=== PATIENT | male | born 1990 | race Asian ===

== ENCOUNTER 2016-11-19 14:59 | Emergency (ER) | payer BC ==
[~2016-11-19] VITALS: Ht 167.6 cm; Wt 66.0 kg
[2016-11-19 15:40] VITALS: BP 140/90
[2016-11-19] MEDS ORDERED: ERYTHROMYCIN BASE 0.5% OPHTH OINT 3.5GM RIGHTEYE ONE (16:30)
== END 2016-11-19 16:46 | disposition home or self-care (01) ==
LOC: ER 16:28
DX: H00.012 Hordeolum externum right lower eyelid (principal); F12.10 Cannabis abuse, uncomplicated
CPT/HCPCS: 99283

== ENCOUNTER 2025-01-17 02:54 | Inpatient (IN) | payer SELFPAY ==
[~2025-01-17] VITALS: Ht 165.1 cm; Wt 64.0 kg
[2025-01-17 03:14] VITALS: O2SAT 98
[2025-01-17] MEDS: LORAZEPAM 2MG/ML UD SYRINGE IV NR (03:45)
[2025-01-17 04:30] LABS: BASOPHILS % 0.1 % (0.0-2.0); EOSINOPHILS % 0.0 % (0.0-5.0); HEMATOCRIT. 48.8 % (42.0-52.0); HEMOGLOBIN. 16.1 g/dL (14.0-18.0); LYMPHOCYTES % 7.6 % (20.0-50.0); MEAN PLATELET VOLUME 8.0 fl (7.4-10.4); MONOCYTES % 5.6 % (2.0-8.0); NEUTROPHILS % 86.7 % (40.0-76.0); PLATELET 190 x1000/uL (130-400); RED BLOOD CELL COUNT 5.11 mill/uL (4.7-6.1); RED CELL DISTRIBUTION WIDTH 13.8 % (11.6-14.6)
[2025-01-17] MEDS: SODIUM CHLORIDE 0.9% 1,000 ML IV ONE (04:41)
[2025-01-17] MEDS: ONDANSETRON HCL 4MG/2ML INJ IV ONE (04:41)
[2025-01-17 04:42] LABS: TROPONIN I HIGH SENSITIVITY 28 ng/L (3.0-53)
[2025-01-17 04:48] LABS: CREATININE 0.7 mg/dL (0.6-1.3); UREA NITROGEN BLOOD 15 mg/dL (9-23)
[2025-01-17 04:50] LABS: ASPARTATE AMINOTRANSFERASE 202 IU/L (<34); BILIRUBIN DIRECT 0.7 mg/dL (<=3.0); BILIRUBIN TOTAL 1.3 mg/dL (0.1-1.0); PROTEIN TOTAL 7.8 g/dL (6.0-8.3)
[2025-01-17] MEDS: MORPHINE SULFATE 4 MG/ML INJ (FOR IV/IM USE) IV ONE (05:15)
[2025-01-17 06:45] VITALS: BP 140/91; PULSE 125; RESP 19; TEMP 36.4; O2SAT 100
[2025-01-17 06:53] LABS: TROPONIN I HIGH SENSITIVITY 29 ng/L (3.0-53)
[2025-01-17 07:37] LABS: CLARITY URINE CLEAR (CLEAR); COLOR URINE DARK YELLOW (YELLOW); GLUCOSE URINE NEGATIVE (NEGATIVE); KETONES URINE 2+ (NEGATIVE); PH URINE 5.0 (4.5-8.0); PROTEIN URINE 2+ (NEGATIVE); SPECIFIC GRAVITY URINE 1.030 (1.005-1.030)
[2025-01-17 07:38] LABS: LEUKOCYTE ESTERASE URINE NEGATIVE (NEGATIVE); NITRITE URINE NEGATIVE (NEGATIVE); OCCULT BLOOD URINE 2+ (NEGATIVE); UROBILINOGEN URINE 1.0 E.U./dL (0.2-1.0)
[2025-01-17] MEDS ORDERED: ACETAMINOPHEN 325MG TABLET PO PRN ×2 (07:45)
[2025-01-17] MEDS ORDERED: CLONIDINE 0.1MG TABLET PO PRN (07:45)
[2025-01-17] MEDS ORDERED: LORAZEPAM 2MG/ML UD SYRINGE IV PRN (07:45)
[2025-01-17] MEDS ORDERED: CHLORDIAZEPOXIDE 25MG CAPSULE PO PRN (07:45)
[2025-01-17] MEDS ORDERED: IPRATROPIUM/ALBUTEROL 0.5-3(2.5)MG/3ML NEB HHN PRN (07:45)
[2025-01-17] MEDS ORDERED: ONDANSETRON HCL 4MG/2ML INJ IV PRN (07:45)
[2025-01-17] MEDS: LORAZEPAM 2MG/ML UD SYRINGE IV SCH (07:45)
[2025-01-17] MEDS ORDERED: DEXTROSE 50% WATER 50ML SYRINGE IV PRN (07:45)
[2025-01-17 07:57] LABS: SQUAMOUS EPITHELIAL CELL URINE RARE /lpf (RARE/1+)
[2025-01-17 07:59] LABS: BACTERIA URINE 1+; RBC URINE 0-2 /hpf (0-2)
[2025-01-17 08:00] VITALS: BP 143/99; PULSE 146; RESP 21; TEMP 36.6; TEMP 36.6404; O2SAT 100
[2025-01-17] MEDS: BLOOD SUGAR DIAGNOSTIC STRIP TEST SCH (08:00)
[2025-01-17] MEDS: DEXT 5%/LACTATED RINGERS 1,000 ML IV SCH (08:00)
[2025-01-17 08:01] LABS: WBC URINE 0-2 /hpf (0-2)
[2025-01-17 08:10] LABS: *AMPHETAMINES SCREEN URINE NEGATIVE (NEGATIVE); *BARBITURATES SCREEN URINE NEGATIVE (NEGATIVE); *BENZODIAZEPINES SCREEN URINE NEGATIVE (NEGATIVE)
[2025-01-17 08:11] LABS: *COCAINE SCREEN URINE NEGATIVE (NEGATIVE); CANNABINOID URINE SCREEN NEGATIVE (NEGATIVE); ECSTASY MDMA SCREEN URINE NEGATIVE (NEGATIVE); METHADONE URINE SCREEN NEGATIVE (NEGATIVE); OPIATES URINE SCREEN NEGATIVE (NEGATIVE); PHENCYCLIDINE URINE SCREEN NEGATIVE (NEGATIVE)
[2025-01-17] MEDS: LACTATED RINGERS 1,000 ML IV SCH (09:56)
[2025-01-17] MEDS: FOLIC ACID 1MG TABLET PO SCH (10:11)
[2025-01-17] MEDS: MULTIVITAMINS,THER W-MINERALS TABLET PO SCH (10:11)
[2025-01-17] MEDS: THIAMINE HCL 100 MG/1 ML 2ML VIAL IM SCH (10:12)
[2025-01-17] MEDS: PANTOPRAZOLE SODIUM 40 MG/VIAL IV NR (10:17)
[2025-01-17 12:00] VITALS: BP 129/95; PULSE 125; RESP 20; TEMP 36.7; O2SAT 99
[2025-01-17 12:56] LABS: INR 1.1
[2025-01-17 13:02] LABS: PHOSPHORUS 2.3 mg/dL (2.5-4.9)
[2025-01-17] MEDS: SUCRALFATE 1G TABLET PO SCH (13:29)
[2025-01-17] MEDS ORDERED: VITA1CAP (14:08)
[2025-01-17] MEDS ORDERED: THIA50TA12 PO (14:08)
[2025-01-17 14:27] LABS: HEPATITIS A AB IGM NEGATIVE (Negative)
[2025-01-17 14:28] LABS: HEPATITIS B CORE AB IGM NEGATIVE (Negative); HEPATITIS C AB NON REACTIVE (Neg) (Negative)
[2025-01-17] MEDS: MAGNESIUM 4 G PREMIX 100 ML IV NR (14:50)
[2025-01-17 16:00] VITALS: BP 151/104; PULSE 117; RESP 19; TEMP 36.8; O2SAT 99
[2025-01-17 20:00] VITALS: BP 146/89; PULSE 98; RESP 20; TEMP 37.4; O2SAT 98
[2025-01-17] MEDS: PANTOPRAZOLE SODIUM 40 MG/VIAL IV SCH (22:08)
[2025-01-17] MEDS: PIPERACILLIN/TAZO 3.375G/50ML 50 ML IV SCH (22:09)
[2025-01-18] VITALS: BP 138/66; PULSE 99; RESP 20; TEMP 37.1; O2SAT 98
[2025-01-18 04:00] VITALS: BP 145/89; PULSE 111; RESP 20; TEMP 37.1; O2SAT 98
[2025-01-18 07:16] LABS: BASOPHILS % 0.1 % (0.0-2.0); EOSINOPHILS % 0.1 % (0.0-5.0); HEMATOCRIT. 39.3 % (42.0-52.0); HEMOGLOBIN. 13.7 g/dL (14.0-18.0); LYMPHOCYTES % 12.6 % (20.0-50.0); MEAN PLATELET VOLUME 9.2 fl (7.4-10.4); MONOCYTES % 4.9 % (2.0-8.0); NEUTROPHILS % 82.3 % (40.0-76.0); PLATELET 77 x1000/uL (130-400); RED BLOOD CELL COUNT 4.19 mill/uL (4.7-6.1); RED CELL DISTRIBUTION WIDTH 14.0 % (11.6-14.6)
[2025-01-18 07:25] LABS: CREATININE 0.5 mg/dL (0.6-1.3)
[2025-01-18 07:26] LABS: LDL CHOLESTEROL 20 mg/dL (5-100); TRIGLYCERIDE 144 mg/dL (0-150); UREA NITROGEN BLOOD < 5 mg/dL (9-23)
[2025-01-18 07:27] LABS: ASPARTATE AMINOTRANSFERASE 161 IU/L (<34); BILIRUBIN DIRECT 0.8 mg/dL (<=3.0)
[2025-01-18 07:28] LABS: BILIRUBIN TOTAL 1.7 mg/dL (0.1-1.0); PROTEIN TOTAL 6.1 g/dL (6.0-8.3)
[2025-01-18 07:29] LABS: T4 FREE 1.46 ng/dL (0.89-1.76)
[2025-01-18 07:46] LABS: PHOSPHORUS 0.8 mg/dL (2.5-4.9)
[2025-01-18 08:00] VITALS: BP 141/84; PULSE 103; RESP 18; TEMP 36.8; O2SAT 100
[2025-01-18] MEDS ORDERED: SODIUM CHLORIDE 0.9% IV SCH (08:00)
[2025-01-18] MEDS ORDERED: POTASSIUM PHOSPHATE IV SCH (08:00)
[2025-01-18] MEDS: DEXT 5% IV ONE (09:18)
[2025-01-18] MEDS: WATER IV ONE (09:18)
[2025-01-18] MEDS: POTASSIUM PHOSPHATE IV ONE (09:18)
[2025-01-18] MEDS: LORAZEPAM 2MG/ML UD SYRINGE IV PRN (10:40)
[2025-01-18 12:00] VITALS: BP 138/88; PULSE 105; RESP 17; TEMP 36.7; O2SAT 98
[2025-01-18] MEDS: LACTULOSE 20G/30ML UDC PO ONE (12:43)
[2025-01-20] MEDS ORDERED: THIAMINE HCL 100MG TABLET PO SCH (09:00)
== END 2025-01-18 17:26 | disposition left against medical advice (07) | DRG 720 ==
LOC: ER 02:54 → 8WST 05:05 → EDBEDREQTM 05:07 → EDBEDREQ 05:07 → ENRESERV 06:26
PROVIDERS: ADMIT Hospitalist; ATTEND Hospitalist
DX: A41.9 Sepsis, unspecified organism (principal); E87.20 Acidosis, unspecified; K85.90 Acute pancreatitis without necrosis or infection, unspecified; F10.229 Alcohol dependence with intoxication, unspecified; I10 Essential (primary) hypertension; K70.10 Alcoholic hepatitis without ascites; K29.70 Gastritis, unspecified, without bleeding; Y90.8 Blood alcohol level of 240 mg/100 ml or more; F10.239 Alcohol dependence with withdrawal, unspecified; Z53.29 Procedure and treatment not carried out because of patient's decision for other reasons
CPT/HCPCS: 36415; 71045; 74176; 80048; 80061; 80076; 80305; 80320; 81003; 82150; 82550; 82962; 83036; 83605; 83735; 84100; 84145; 84439; 84443; 84484; 85025; 86705; 86709; 87340; 93005; 97166; 99285; A4606; J2060; J2405; J2470; J2543; J3411; J3475; J3490; J7030; J7060; J7121; G0480